=== PATIENT | female | born 1970 | race Caucasian/White ===

== ENCOUNTER 2018-07-22 10:33 | Emergency (ER) | payer MEDICAID ==
[~2018-07-22] VITALS: Ht 170.2 cm; Wt 112.9 kg
[2018-07-22 10:53] VITALS: BP 143/83
== END 2018-07-22 12:25 | disposition home or self-care (01) ==
LOC: ED 10:33
DX: H66.92 Otitis media, unspecified, left ear (principal); J40 Bronchitis, not specified as acute or chronic